=== PATIENT | female | born 1980 | race Native Hawaiian/Other Pacific Islander ===

== ENCOUNTER 2018-09-14 09:37 | Emergency (ER) | payer OTHER ==
[~2018-09-14] VITALS: Ht 162.6 cm; Wt 86.2 kg
[2018-09-14 09:45] VITALS: TEMP 97.5
[2018-09-14 11:19] VITALS: BP 118/68
== END 2018-09-14 11:20 | disposition home or self-care (01) ==
LOC: ED 09:37
DX: M54.5 Low back pain (principal); S39.012A Strain of muscle, fascia and tendon of lower back, initial encounter; X50.0XXA Overexertion from strenuous movement or load, initial encounter
CPT/HCPCS: 80307; 81000; 96372; 99283; J1885

== ENCOUNTER 2019-03-04 11:15 | Outpatient (CLI) | payer OTHER | END 2019-03-04 21:05 | disposition home or self-care (01) | LOC: RAD 11:15 | DX: R07.81 Pleurodynia (principal); M25.512 Pain in left shoulder ==